=== PATIENT | male | born 1975 | race Caucasian/White ===

== ENCOUNTER 2019-07-25 17:57 | Observation (INO) ==
[2019-07-25] MEDS ORDERED: NS 1,000 ML IV PRN (18:11)
--- NOTE | 2019-07-25 18:28 | Diag Imaging Result Doc PS360 ---
EXAM: CT HEAD W/O CONTRAST 07/25/2019 HISTORY: stroke like symptoms TECHNIQUE: This exam was performed using automated exposure control, adjustment of mA or kV according to patient size, and/or use of iterative reconstruction technique. COMMENT: There is a 7 mm lacune in the posterior inferior putamen on the left. There is no evidence of mass effect, bleed, or abnormal extra-axial fluid collection. There are no previous studies available for comparison. The calvarium is intact. The visualized paranasal sinuses are clear. IMPRESSION: Chronic ischemic change. No evidence of acute disease. Electronically signed by Gabriel Kong 07/25/2019 6:25 PM
--- NOTE | 2019-07-25 18:29 | Diag Imaging Result Doc PS360 ---
EXAM: CHEST-PORTABLE 07/25/2019 HISTORY: STROKE LIKE SYMPTOMS TECHNIQUE: AP portable at 1822 COMMENT: There is no evidence of acute cardiac or pulmonary disease. There are no previous studies. IMPRESSION: No evidence of acute disease. Electronically signed by Gabriel Kong 07/25/2019 6:25 PM
[2019-07-25 19:04] LABS: BASO# 0.02 X1000 (0.0-0.2); BASO% 0.3 % (0.0-0.8); EOS# 0.09 X1000 (0.0-0.7); EOS% 1.5 % (0.0-10.0); HEMATOCRIT 39.3 % (42.0-52.0); HEMOGLOBIN 13.8 g/dL (14.0-18.0); LYMPH# 1.39 X1000 (1.2-3.4); LYMPH% 22.5 % (20.5-51.1); MCHC 35.1 g/dL (33-37); MCV 96.8 FL (81-99); MONO# 0.48 X1000 (0.11-0.59); MONO% 7.8 % (1.7-9.3); NEUT# 4.19 X1000 (1.4-6.5); NEUT% 67.9 % (42.2-75.2); PLT 213 X1000 (130-400); RBC 4.06 XMIL (4.7-6.1); RDW 13.7 % (11.5-14.5); WBC 6.17 X1000 (4.8-10.8)
[2019-07-25 19:16] LABS: INR 0.9; PROTIME 12.2 Seconds (11.0-16.0)
[2019-07-25 19:17] LABS: PTT 29.2 Seconds (22.3-41.8)
[2019-07-25 19:35] LABS: AGAP 12; ALBUMIN 4.5 g/dL (3.5-5.0); ALKALINE PHOSPHATASE 109 U/L (32-122); BUN 9 mg/dL (8-22); CHLORIDE 102 mmol/L (98-107); COSMO 283; CREATININE 0.8 mg/dL (0.7-1.2); ESTIMATED GFR > 60; GLUCOSE 150 mg/dL (70-104); GOT 41 U/L (10-34); GPT 28 U/L (10-44); POTASSIUM 3.9 mmol/L (3.5-5.1); SODIUM 141 mmol/L (136-145); TCO2 27 mmol/L (25-35); TOTAL BILIRUBIN 0.26 mg/dL (0.20-1.00); TOTAL PROTEIN 6.7 g/dL (6.3-8.3)
[2019-07-25] MEDS ORDERED: APRESOLINE IV ONE (19:53)
--- NOTE | 2019-07-25 20:40 | PROVIDER DOCUMENTATION ---
This chart was entered by Estrella Crane Scribe, acting as scribe for Luis Shoemaker MD. HPI-Neurological Disorder - General Chief Complaint: Stroke-Like Symptoms Stated Complaint: RT SIDE WEAKNESS Time Seen by Provider: 07/25/19 18:14 Source: RN/ Allergies/Adverse Reactions: Patient Allergies Allergy/AdvReac Type Severity Reaction Status Date / Time codeine AdvReac NAUSEA Verified 07/25/19 18:50 ondansetron HCl * AdvReac HEADACHE Verified 07/25/19 18:50 [From Zofran (as hydrochloride)] Home Medications: Home Medication List Medication Instructions Recorded Confirmed Last Taken Type Aspirin 325 mg PO DAILY 07/25/19 07/25/19 07/25/19 History LISINOpril [Prinivil] 20 mg PO DAILY 07/25/19 07/25/19 07/25/19 History - History of Present Illness-Neuro Nature of Presenting Problem: pt is a 44 yom c/o woke this am 0800 w/RUE heaviness. had trouble signing son in to school today. was seen by pcp today and had normal neuro exam. couldn't schedule head CT today w/pcp. pt took a nap and woke w/both RUE and RLE heaviness and decided to come to er. nonsmoker, no drug or alcohol use. HX OF HTN. Severity: reports: mild Onset/Duration: reports: this morning (0800) Timing: reports: still present Context: reports: other (RUE AND RLE HEAVINESS) Character of Altered Mental Status: reports: N/A Any recent trauma/injury?: reports: none New weakness or altered sensation location:: reports: RUE, RLE Cognitive Baseline: alert, oriented x3 Associated Symptoms: reports: denies symptoms Review of Systems - Adult - REVIEW OF SYSTEMS - ADULT Constitutional: reports: no symptoms reported. denies: fever, fatique, night sweats Eyes: reports: no symptoms reported Ears, Nose, Mouth & Throat: reports: no symptoms reported Cardiovascular: reports: no symptoms reported Respiratory: reports: no symptoms reported Gastrointestinal: reports: no symptoms reported Genitourinary: reports: no symptoms reported Musculoskeletal: reports: no symptoms reported Integumentary: reports: no symptoms reported Neurological: reports: see HPI, other (RUE AND RLE HEAVINESS). denies: headache/migraines, numbness, paresthesia Psychiatric: reports: no symptoms reported Endocrine: reports: no symptoms reported Hematologic/Lymphatic: reports: no symptoms reported Allergic/Immunologic: reports: no symptoms reported All Other Systems: Reviewed and Negative Past History - Adult - PAST MEDICAL HISTORY-ADULT Review of Records: reports: Nursing Assessment Review, Medications Reviewed, Social history reviewed & non-contributory. Major Childhood Illnesses: reports: denies history Cardiovascular: reports: HTN Respiratory: reports: denies history Gastrointestinal: reports: denies history Obstetrical/Gynecological: reports: denies history Genitourinary: reports: denies history Musculoskeletal: reports: denies history Neurological: reports: denies history Endocrine/Immune: reports: denies history Other Conditions: reports: denies history - PRIOR SURGERIES/PROCEDURES Surgical/Procedure History: reports: other (gastric sling) - IMMUNIZATION STATUS Childhood Immunizations: See Nurse Assessment Flu Vaccine: See Nurse Assessment - FAMILY HISTORY Family History: reviewed, not pertinent - SOCIAL HISTORY Smoking: non-smoker Substance Use: none/never Physical Exam- Neurological - Physical Exam-Neuro Initial Vital Signs Reviewed: Yes General Appearance: appears well, alert, no apparent distress, obese. negative: cachetic, lethargic, obtunded Eye Exam: bilateral eye: normal inspection, PERRL HENMT: normocephalic/atraumatic, moist mucous membranes Head Injury: no evidence of injury Neck: non-tender, full range of motion, supple, normal inspection Respiratory: chest non-tender, lungs clear, normal breath sounds Cardiovascular: normal peripheral pulses, regular rate, rhythm Abdominal Exam: normal bowel sounds, non tender, soft Extremity: normal range of motion, non-tender, normal inspection advertising inserter Exam: normal hearing, normal speech, PERRL Motor/Sensory: no motor deficit, no sensory deficit Neurologic: advertising inserter II-XII nml as tested, grossly normal, no motor/sensory deficits, other (NVI) Integumentary: normal color, normal turgor, warm/dry Psych/Mental Status: normal mood/affect, normal thought content, normal thought process, oriented x 3 - Glascow Coma Scale Best Eye Response: (4) open spontaneously Best Verbal Response: (5) oriented Best Motor Response: (6) obeys commands Total Glascow Score: 15 Progress - PLAN OF CARE/RESULTS Progress/Plan/Lab Results: Vital Signs - 8 hr 07/25/19 18:08 Temperature 97.8 F Pulse Rate 91 H Respiratory Rate 18 Blood Pressure 152/98 O2 Sat by Pulse Oximetry 96 Laboratory Results - last 24 hr 07/25/19 07/25/19 07/25/19 18:50 18:50 18:50 WBC 6.17 RBC 4.06 L Hgb 13.8 L Hct 39.3 L MCV 96.8 MCH 34.0 H MCHC 35.1 RDW Std Deviation 13.7 Plt Count 213 MPV 8.0 Immature Gran % (Auto) 0.0 Neut % (Auto) 67.9 Lymph % (Auto) 22.5 Chilton % (Auto) 7.8 Eos % (Auto) 1.5 Baso % (Auto) 0.3 Immature Gran # (Auto) 0.00 Neut # (Auto) 4.19 Lymph # (Auto) 1.39 Chilton # (Auto) 0.48 Eos # (Auto) 0.09 Baso # (Auto) 0.02 PT 12.2 INR 0.90 PTT (Actin FS) 29.2 Sodium 141 Potassium 3.9 Chloride 102 Carbon Dioxide 27 Anion Gap 12 BUN 9 Creatinine 0.8 Estimated GFR/1.73 m2 > 60 BUN/Creatinine Ratio 11 Glucose 150 H POC Glucose Calculated Osmolality 283 Calcium 9.0 Total Bilirubin 0.26 AST 41 H ALT 28 Alkaline Phosphatase 109 Troponin T High Sens Total Protein 6.7 Albumin 4.5 Globulin 2.2 Albumin/Globulin Ratio 2.0 07/25/19 07/25/19 18:50 19:14 WBC RBC Hgb Hct MCV MCH MCHC RDW Std Deviation Plt Count MPV Immature Gran % (Auto) Neut % (Auto) Lymph % (Auto) Chilton % (Auto) Eos % (Auto) Baso % (Auto) Immature Gran # (Auto) Neut # (Auto) Lymph # (Auto) Chilton # (Auto) Eos # (Auto) Baso # (Auto) PT INR PTT (Actin FS) Sodium Potassium Chloride Carbon Dioxide Anion Gap BUN Creatinine Estimated GFR/1.73 m2 BUN/Creatinine Ratio Glucose POC Glucose 155 H Calculated Osmolality Calcium Total Bilirubin AST ALT Alkaline Phosphatase Troponin T High Sens 7 Total Protein Albumin Globulin Albumin/Globulin Ratio Orders Category Date Time Status Cardiac Monitoring DIRECTED Care 07/25/19 18:11 Active Finger Stick Blood Sugar (ED) DIRECTED Care 07/25/19 18:11 Active Misc. NRSG Communication Order DIRECTED Care 07/25/19 18:11 Active Saline Loc NOW Care 07/25/19 18:11 Active CHEST-PORTABLE [RAD] Stat Exams 07/25/19 18:[address] HEAD W/O CONTRAST [CT] Stat Exams 07/25/19 18:11 Completed CBC WITH ELECTRONIC DIFF [HEME] Stat Lab 07/25/19 18:50 Completed COMPREHENSIVE METABOLIC PANEL [CHEM] Stat Lab 07/25/19 18:50 Completed PROTIME WITH INR [COAG] Stat Lab 07/25/19 18:50 Completed PTT [COAG] Stat Lab 07/25/19 18:50 Completed TROPONIN T HIGH SENSITIVITY Stat Lab 07/25/19 18:50 Completed URINALYSIS W/POSS RFLX CULT [URINALYSIS] Stat Lab 07/25/19 18:11 Uncollected URINE DRUG SCREEN Stat Lab 07/25/19 18:11 Uncollected 0.9% Sodium Chloride Inj [Ns] 1,000 ml Med 07/25/19 18:11 Active IV 999 mls/hr Hydralazine [Apresoline] Med 07/25/19 19:53 Discontinued 20 mg IV NOW ONE EKG [EKG] Stat Ther 07/25/19 18:11 Ordered Result Diagrams: 07/25/19 18:50 07/25/19 18:50 - EKG 1 Time of EKG reading by physician:: 19:03 EKG Read and Signed by:: Luis Shoemaker EKG Interpretation (*Must complete 3 of following elements*): Abnormal Rate: 77 Rhythm: NSR Colwell: normal QRS: normal ND Interval: normal ST Wave: non-specific ST changes (ST&T WAVE ABNORMALITY, CONSIDER ANTEROLATERAL ISCHEMIA) - XRAY 1 XRAY Study: Chest Impression: Normal, See EMR Report ( EXAM: CHEST-PORTABLE 07/25/2019 HISTORY: STROKE LIKE SYMPTOMS TECHNIQUE: AP portable at 1822 COMMENT: There is no evidence of acute cardiac or pulmonary disease. There are no previous studies. IMPRESSION: No evidence of acute disease. Electronically signed by Gabriel temple 07/25/2019 6:25 PM) Comparison with other Films: no prior study - CT/MRI 1 CT Study: Head Impression: See EMR Report (EXAM: CT HEAD W/O CONTRAST 07/25/2019 HISTORY: stroke like symptoms TECHNIQUE: This exam was performed using automated exposure control, adjustment of mA or kV according to patient size, and/or use of iterative reconstruction technique. COMMENT: There is a 7 mm lacune in the posterior inferior putamen on the left. There is no evidence of mass effect, bleed, or abnormal extra-axial fluid collection. There are no previous studies available for comparison. The calvarium is intact. The visualized paranasal sinuses are clear. IMPRESSION: Chronic ischemic change. No evidence of acute disease. Electronically signed by Gabriel Kong 07/25/2019 6:25 PM) Comparison with other Films: no prior study - CONSULTS/PCP/HOSPITALIST Notification #1 *Consult/PCP/Hospitalist*: [place] Time Discussed: 20:36 Consult Disposition: Admit (accepts admission for eval of TIA VS CVA) Departure - Departure Date of Disposition Decision: 07/25/19 Time of Disposition Decision: 20:36 DIAGNOSIS: Right sided weakness HTN (hypertension) Qualifiers: Hypertension type: essential hypertension Qualified Code(s): I10 - Essential (primary) hypertension Disposition: ADMITTED INPATIENT 09 Certified Medical Emergency: Emergent Condition: Fair Referrals and Follow-Ups: Andrea Anton MD [Primary Care Provider] - - Critical Care Note This patient required my direct & personal management of CC.: No Attestation - Physician/ INEZ Attestation Patient care was provided by Advanced Practice Provider:: No The physician spent face to face time with patient:: Yes Advanced Practice Provider documentation review:: Supervising physician onsite and consulted in the evaluation and care of this patient. The physician did have a face to face encounter with the patient. - NIH Stroke Scale NIH Type: Initial Evaluation Level of Consciousness: 0-Alert LOC Questions (ask month and age): 0-Answers Both Correctly LOC Commands (ask to open & close eyes;make a fist, let go): 0-Obeys Both Correctly Best Gaze (horizontal eye movement): 0-Normal Visual (use finger movement, counting or visual threat): 0-No Visual Loss Facial Palsy (show teeth or raise eyebrows & close eyes tght: 0-Symmetrical Movement Motor Function-left arm: 0-Normal Motor Function-right arm: 0-Normal Motor Function-left le-Normal Motor Function-right le-Normal Limb Ataxia(tzofwc-[id number], or heel to ordoñez): 0-No Ataxia Sensory(pin prick to face,arms,trunk,legs-compare side/side): 0-No Ataxia Best Language(name item/read sentence.Ex-Down to Earth): 0-No Aphasia Dysarthria(Pt read words or say words Ex.Mama,Tip-Top,Thanks: 0-Normal Articulation Extinction and Inattention: 0-Normal This chart was documented by the indicated scribe, (Estrella Crane, Scribe) and accurately reflects the services I performed and decisions made by me, Luis Shoemaker MD, as attested by the provider's signature.
[2019-07-25] MEDS: NS 1,000 ML IV SCH ×2 (21:33)
[2019-07-25] MEDS ORDERED: LIPITOR PO SCH (21:33)
[2019-07-25] MEDS ORDERED: TYLENOL PO PRN (21:33)
[2019-07-25] MEDS ORDERED: APRESOLINE IV PRN (21:33)
[2019-07-25 21:58] LABS: HEMOGLOBIN A1C 6.3 % (4.8-6.0)
[2019-07-25] MEDS ORDERED: LOVENOX SUBQ SCH (22:00)
--- NOTE | 2019-07-25 22:17 | HISTORY AND PHYSICAL ---
PRIMARY CARE PHYSICIAN: Andrea Anton MD REASON FOR ADMISSION: Right-sided weakness, right-sided heaviness today. HISTORY OF PRESENT ILLNESS: Mr. Charles Groves is a 44-year-old white male with past medical history of obstructive sleep apnea. He reports that he was awakened this morning with heaviness in his right upper extremity. He did not think anything of it. He thought he had slept on his arm. He dropped their son off at school and was tried to sign him in, and noticed he had no control of his hand movements. The patient decided to get this checked out by his primary care provider, who gave him an aspirin and was going to set up a workup for possible TIA as an outpatient; however, due to logistical reasons the patient could not do this. He then went home and slept, and when he awakened he noticed that the heaviness in his right upper extremity had increased. He started noticing some heaviness/weakness in his right lower extremity. He denies any problems swallowing, speech problems, visual problems, headaches, numbness or tingling elsewhere, loss of consciousness, palpitations or any cardiorespiratory complaints. No GI or complaints. No polyuria or polydipsia. No bleeding from any orifice. REVIEW OF SYSTEMS: Twelve-system review was done. Positive findings per HPI. The patient, on account of the findings noted in the HPI, went to the ER to get further evaluation. ALLERGIES: Codeine and Zofran. HOME MEDICATIONS: He takes nothing. He was actually given his first dose of lisinopril 20 mg by his primary care provider due to noticeable elevated blood pressure. PAST SURGICAL HISTORY: He has had tonsillectomy, right inguinal hernia repair, gastric sleeve. SOCIAL HISTORY: He does not smoke, drink or use illicit drugs. FAMILY HISTORY: Notable for epilepsy, diabetes type 2, coronary artery disease in first-degree relatives. LABORATORY DATA: Lab work is notable for blood sugar of 150. White count 6000, hemoglobin and hematocrit 13 and 39, platelets 213,000. DIAGNOSTIC DATA: EKG showed normal sinus rhythm, with nonspecific ST and T-wave changes. CT of the head showed no acute intracranial bleed or infarct. Chest film shows no evidence of acute cardiopulmonary disease. PHYSICAL EXAMINATION: VITAL SIGNS: Blood pressure is 150/98, heart rate 91, respiratory rate is 18, temperature is 97.8 degrees, he is 96% on room air. GENERAL: He is a pleasant, obese, middle-aged white male who is not in acute distress. He is alert and oriented x3 with normal mood and affect. HEENT: Head is normocephalic and atraumatic. Eyes exam: Anicteric, not pale. ENT and oropharynx exam grossly normal Without cyanosis. NEUROLOGIC: Cranial nerves 2-12 are grossly intact. The rest of his neurological exam shows a positive right pronator drift and ataxia, or shall I say lack of fine skilled movements of the digits of the right hand. Otherwise his gross power in upper and lower extremities is 5/5. No asterixis or tremors. NECK: Supple. No JVD or carotid bruit. No thyromegaly. CHEST: Clear when auscultated, with good air entry in both lung maddox. CARDIOVASCULAR: First and second heart sounds are heard. No gallops, murmurs or rubs. Rhythm is regular. ABDOMEN: Protuberant, soft. No tenderness or organomegaly. Bowel sounds are normal. RECTAL: Exam deferred at this time. EXTREMITIES: No edema, clubbing or peripheral cyanosis. Good distal pulse volumes, symmetrical, regular. SKIN: Intact. No breakdown, lesion or erythema. MUSCULOSKELETAL: Exam is grossly normal. ASSESSMENT: 1. Cerebrovascular accident, likely left lacunar infarct, purely motor in nature, with possible Patient not a candidate for thrombolysis, as it is outside the 4-1/2-hour window. His symptoms have not progressed, have remained the same since he has been in the emergency room. We will continue with aspirin for now and high-dose statins. We will allow for permissive hypertension so as not to extend probable ischemic penumbra. Screen patient for other risk- modifying conditions contributing to this patient's stroke, i.e. diabetes. In the morning if blood pressure is still elevated, consider starting the patient on modest doses of antihypertensives. Stroke workup will be initiated with carotid Doppler and echocardiogram. MRI will be much more sensitive in discerning lacunar infarcts in this case, but the patient says he is claustrophobic. I assured him he can be given Ativan. Alternatively, if the patient feels he can go through with this, our options are to probably do a CT of head and neck, which would cover for neck and intracranial stenotic lesions. If the patient does have significant intracranial stenotic lesions of the large vessels, he may benefit from addition of Plavix and aspirin combination for 90 days, as data has shown decreased incidence of recurrent stroke in this subgroup. Other supportive care, physical therapy and occupational therapy especially in this case, will be offered. Consult Dr. Rojo for further input. 2. Sleep apnea. Also, sleep apnea needs to be addressed. The patient will continue his bilevel positive airway pressure. May need modification or adjustment of his settings. 3. Hypertension. Continue on modest doses of antihypertensives, with trial of Norvasc 5 mg in the morning with or without lisinopril 10 mg. 4. Morbid obesity. 5. Hyperglycemia. Check A1c. cc: MD Andrea Welch MD MTDD
[2019-07-26 02:46] LABS: URINE SOURCE CLEAN CATCH
[2019-07-26 02:59] LABS: BILIRUBIN URINE NEGATIVE (NEGATIVE); BLOOD URINE NEGATIVE (NEGATIVE); COLOR YELLOW; GLUCOSE URINE 1000 mg/dL (NEGATIVE); KETONE URINE NEGATIVE (NEGATIVE); LEUKOCYTES URINE NEGATIVE (NEGATIVE); NITRITE URINE NEGATIVE (NEGATIVE); PROTEIN URINE 30 mg/dL (NEGATIVE); SP GRAVITY URINE 1.033; TURBIDITY URINE CLEAR (CLEAR); UROBILINOGEN URINE 2 mg/dL (NORMAL)
[2019-07-26 03:00] LABS: UR EPITHELIAL CELLS <10 /HPF (<10); URINE BACTERIA NEGATIVE /HPF; URINE RBC <10 /HPF (<10); URINE WBC <10 /HPF (<10)
[2019-07-26 03:18] LABS: UR AMPHETAMINES QUAL PRESUMPTIVE POSITIVE (NONE DETECT); UR BARBITUATES QUAL NONE DETECTED (NONE DETECT); UR BENZODIAZEPIN QUAL NONE DETECTED (NONE DETECT); UR CANNABINOIDS QUAL NONE DETECTED (NONE DETECT); UR COCAINE QUAL NONE DETECTED (NONE DETECT); UR METHADONE QUAL NONE DETECTED (NONE DETECT); UR OPIATES QUAL NONE DETECTED (NONE DETECT); UR OXYCODONE QUAL NONE DETECTED (NONE DETECT); UR PCP QUAL NONE DETECTED (NONE DETECT)
--- NOTE | 2019-07-26 07:24 | EKG Report ---
Test Performed on : 07/25/2019 7:03:33 PM Test Reason : Stroke like symptoms Blood Pressure : / mmHG Vent. Rate : 077 BPM Atrial Rate : 077 BPM P-R Int : 138 ms QRS Dur : 096 ms QT Int : 382 ms P-R-T Axes : 030 015 106 degrees QTc Int : 432 ms Normal sinus rhythm. ST & T wave abnormality, consider anterolateral ischemia Abnormal ECG No previous ECGs available Unconfirmed Result
[2019-07-26 07:53] LABS: BASO# 0.04 X1000 (0.0-0.2); BASO% 0.8 % (0.0-0.8); EOS# 0.12 X1000 (0.0-0.7); EOS% 2.4 % (0.0-10.0); HEMATOCRIT 38.5 % (42.0-52.0); HEMOGLOBIN 13.3 g/dL (14.0-18.0); LYMPH# 1.37 X1000 (1.2-3.4); LYMPH% 26.9 % (20.5-51.1); MCH 33.9 PG (27-31); MCHC 34.5 g/dL (33-37); MCV 98.2 FL (81-99); MONO# 0.42 X1000 (0.11-0.59); MONO% 8.2 % (1.7-9.3); MPV 7.9 FL (7.4-10.4); NEUT# 3.15 X1000 (1.4-6.5); NEUT% 61.7 % (42.2-75.2); PLT 188 X1000 (130-400); RBC 3.92 XMIL (4.7-6.1); RDW 13.9 % (11.5-14.5)
[2019-07-26] MEDS ORDERED: ATIVAN IV ONE (08:11)
[2019-07-26 08:26] LABS: AGAP 10; BUN 10 mg/dL (8-22); CALCIUM 8.7 mg/dL (8.8-10.2); CHLORIDE 102 mmol/L (98-107); COSMO 277; CREATININE 0.7 mg/dL (0.7-1.2); ESTIMATED GFR > 60; GLUCOSE 148 mg/dL (70-104); POTASSIUM 3.6 mmol/L (3.5-5.1); SODIUM 138 mmol/L (136-145); TCO2 26 mmol/L (25-35)
[2019-07-26] MEDS ORDERED: ASPIRIN PO SCH (09:00)
[2019-07-26] MEDS ORDERED: PRINIVIL PO SCH (09:00)
[2019-07-26] MEDS ORDERED: NORVASC PO SCH (09:00)
--- NOTE | 2019-07-26 09:06 | Diag Imaging Result Doc PS360 ---
EXAM: MRA BRAIN W/O CONTRAST HISTORY: stroke TECHNIQUE: MR angiography of [facility]. MIP images obtained. COMPARISON: None. FINDINGS: There is normal flow in the basilar artery and posterior cerebral arteries. Normal flow in the distal internal carotid arteries with filling of the anterior and middle cerebral arteries. No occlusion or focal stenosis identified. No aneurysm. IMPRESSION: Normal MR angiography of [facility]. Electronically signed by Rosalio Brown 07/26/2019 9:04 AM
--- NOTE | 2019-07-26 09:14 | Diag Imaging Result Doc PS360 ---
EXAM: MRI BRAIN W/WO CONTRAST HISTORY: stroke TECHNIQUE: MRI brain with and without intravenous contrast. Axial, sagittal, and coronal images obtained in multiple sequences. These are followed the post contrasted axial and coronal images. COMPARISON: None. FINDINGS: There is a recent left periventricular lacunar infarct just above the posterior horn of the internal capsule. This measures 10 mm. No other recent infarct. No mass or midline shift. No enhancing lesion on the post contrasted images. No hydrocephalus. No epidural or subdural fluid collection. Normal orbits. No sinus opacification. No air-fluid levels. IMPRESSION: Recent left lacunar infarct. This report was discussed with Michelle , the charge nurse on the third floor, on 07/26/2019 at 9:10 AM and was readback. Electronically signed by Rosalio Brown 07/26/2019 9:12 AM
[2019-07-26 16:46] VITALS: BP 151/98
--- NOTE | 2019-07-26 18:19 | ECHO REPORT ---
ORDER DATE: 07/26/2019 INTERPRETING PHYSICIAN: Dr. Manuel Storm QUALITY: Technically suboptimal study. Poor acoustic window. ECHOCARDIOGRAPHIC MEASUREMENTS: 1. Interventricular septum 1.8 cm. 2. Left atrium 4.0 cm. 3. Aorta 3.6 cm. 4. Left ventricular outflow tract diameter 2.8 cm. 5. Accurate measurements could not be obtained in the parasternal view. SUMMARY OF THE 2-DIMENSIONAL IMAGIN. Aortic valve leaflets were trileaflet. 2. Pulmonic valve was normal. 3. Tricuspid valve was normal. There was mild mitral regurgitation. 4. Mild tricuspid regurgitation. Peak velocity across the tricuspid valve was 2.4 m/sec. 5. Pulmonary artery systolic pressure of 33 mmHg. 6. Peak velocity across the aortic valve was less than 2 m/sec. There was no aortic stenosis or regurgitation. 7. There was diastolic dysfunction grade 1. 8. Normal left ventricular cavity size. Significant asymmetric septal hypertrophy. 9. Optison was used to assess left ventricular systolic function. Left ventricular ejection fraction estimated at 65 to 70 percent. There was no significant intraventricular gradient by Valsalva maneuver. 10. There was no pericardial effusion. 11. There was mild mitral regurgitation. 12. There was no obvious intracardiac mass or thrombus seen. cc: MD Hood Craft MD
--- NOTE | 2019-07-26 20:31 | NEUROLOGY CONSULTATION ---
DATE: 07/26/2019 HISTORY OF PRESENT ILLNESS: Mr. Groves is 44 years old and there is evidence of stroke. History from the patient is that he noted heaviness in the right arm when he woke yesterday. That seemed to be gradually worse through the day. He had trouble using his right hand for signature, trouble holding and positioning pen, without definite language problem. He developed some weakness in the right leg, but there was no stumbling or falling. He did not notice slurred speech, trouble chewing or swallowing, language problem, vision disturbance. There was never any left- sided deficit. He had a little bit of headache which resolved. Today, he thinks he is a little bit better. He has not had previous diagnosed stroke. He has never had any other neurologic event. He has risk factors for cerebrovascular ischemic problems, including recently diagnosed hypertension, possibly diabetes mellitus, possibly dyslipidemia. He does not smoke cigarettes. There is not family history of stroke or heart attack at young age. He had gastric bypass several years ago with major weight loss. He had used metformin prior to that, but believes he did not ever have diagnosis of diabetes mellitus. Workup here includes brain MRI done with and without contrast showing restricted diffusion, left subcortical periventricular white matter. Brain MRA is unremarkable. He has had echocardiogram and carotid ultrasound with reports pending. Labs showed total cholesterol 220, HDL 64, VLDL 56, LDL 121, triglycerides 281. Blood sugars have been 150s here. A1c 6.3%. There is mild anemia. He has been afebrile. Initial heart rate was 90s, recently 70s to 80s. Initial systolic blood pressures were 150s to 180s, recently 130s to 170s. Since admission, he has started daily aspirin, statin, medicines for blood pressure control, and he is tolerating this management. PHYSICAL EXAMINATION: On exam, Mr. Groves is awake, alert, attentive, appropriate, oriented, cheerful. Speech is not dysarthric. Language function is intact on careful bedside testing. Recent and remote memory good. Head and neck are unremarkable. Visual maddox are full to confrontational finger counting. Extraocular movements are full. Facial motility is good bilaterally, but the right nasolabial fold is slightly less prominent than the left. Tongue protrudes very slightly and inconsistently to the right. Gag is intact. Palate is midline. Hearing is good. Shoulder shrug is equal. Strength is normal in the left limbs. I can overcome the right deltoid 4/5, wrist extensor 4+/5, iliopsoas 4+/5. Tone is increased in the right arm. Tone is symmetric in the legs. He did rapid alternating movements much better with the left hand than with the dominant right hand. He did a little better with left [id number] than with the right. He reports equal pinprick appreciation over the hands and feet. Proprioception is good at the great toe MTP joints bilaterally. I did not test his gait. Plantar response is silent bilaterally. IMPRESSION: Acute subcortical dominant left hemispheric infarction with relatively pure motor hemiparesis. No definite language disturbance, sensory deficit, vision loss. We reviewed his risk factors. I encouraged him to be aggressive with management of those. His obstructive sleep apnea may also be a factor, and I recommended he make sure he is up-to-date with management for that. I do not have any urgent suggestion right now. He reports stable course with improvement overnight. If we do not find surprises on the carotid ultrasound and echocardiogram, I would plan for discharge with aspirin, statin, medicines for blood pressure. If he does have diabetes mellitus, we should treat blood sugar aggressively. Thanks for asking Neurology to see Mr. Groves. cc: MD VERONICA Barker III
--- NOTE | 2019-07-27 18:59 | Carotid Study ---
DATE: 07/26/2019 REFERRING PHYSICIAN: Kane Corona MD. READING PHYSICIAN: Demarco Ward MD. CHAIR FINISHER: Sg. INDICATION: Stroke. FINDINGS: There were no significant plaques or atherosclerotic changes in the carotid systems. There was antegrade vertebral flow. Percent stenosis is 0 to 39% bilaterally. INTERPRETATION: Unremarkable carotid imaging study. cc: MD Kane Pryor MD
--- NOTE | 2019-07-27 19:56 | DISCHARGE SUMMARY ---
ADMISSION DATE: 07/25/2019 DISCHARGE DATE: 07/26/2019 DISPOSITION: Home. FOLLOWUP: 1. Shira Rojo III, MD 2. Dr. Peterson. 3. [facility]. CONSULTATION DURING THIS ADMISSION: Neurology was consulted. Patient was seen by Dr. Rojo. INVASIVE PROCEDURES DONE DURING THIS ADMISSION: None. IMAGING STUDIES: Significant for: 1. A CT scan of the head showed chronic ischemic changes. No evidence of acute disease. 2. MRA of the brain showed a normal angiograph of the [place]. 3. MRI of the brain showed a recent left lacunar infarct. ADMISSION DIAGNOSES: 1. Cerebrovascular accident with left lacunar infarct purely motor in nature. 2. Sleep apnea. 3. Hypertension. 4. Morbid obesity. 5. Hyperglycemia. DIAGNOSES AT THE TIME OF DISCHARGE: 1. Acute left lacunar basal ganglia infarct leading to a mild right side hemiparesis. 2. History of obstructive sleep apnea. 3. Hypertension. 4. Morbid obesity. 5. Hyperglycemia with abnormal A1c but not diagnostic for diabetes. 6. Metabolic syndrome. DISCHARGE MEDICATIONS: 1. Aspirin 325 p.o. daily. 2. Lisinopril 10 mg p.o. daily. 3. Amlodipine 5 mg p.o. daily. 4. Atorvastatin 40 mg p.o. at bedtime. DISCHARGE INSTRUCTIONS: The patient has been advised to withhold blood pressure medication for the next 48 hours, check on the blood pressure 3 times per day, try and maintain systolic blood pressure between 140 to 160 and diastolic between 80 to 90. The patient is advised to also restart lisinopril after 48 hours; however, if the blood pressure systolic is more than 160, then to start both agents after 48 hours. Mr. Groves was found to have abnormal A1c and elevated random glucose level. We think he has metabolic syndrome. He has been advised on dietary and lifestyle modifications and repeat the A1c in about 3 months with his primary care doctor. PRESENTING COMPLAINT: Right-sided weakness. HISTORY OF PRESENTING COMPLAINT: Mr. Grovse is a 44-year-old gentleman who is known to have uncontrolled hypertension, is not on any medication started feeling some weakness on the left upper extremity yesterday. Went to see his PCP who tried to arrange outpatient CAT scan. Unfortunately, they were not able to do it right away so he went home, took his blood pressure medications and then slept, woke up and felt that the right upper extremity weakness was even worse and that the right lower extremity was also getting weaker so he came to the emergency room where he was evaluated and admitted for possible CVA. Initially a CT scan was unremarkable. He was admitted for the stroke workup. HOSPITAL COURSE: Mr. Groves was adequately fluid resuscitated. All his laboratory data were within normal range except glucose that were minimally elevated. A1c at 6.3 and both triglyceride and cholesterol were elevated; however, LDH and HDL were normal. An MRI of the brain was done, which showed an acute left lacunar infarct just above the posterior horn of the internal capsule. Today, Mr. Groves referred to be feeling a lot better. He has been evaluated by Neurology, and he is very adamant that if at all he can be discharged, he just wants to go home. I think he should be okay going home since he has been fairly neurologically stable for the last 24 hours. He has been arranged to follow up with [facility] for rehabilitation. We have also given him precise recommendations on blood pressure management in the next 48 to 72 hours, and he will follow up with his primary care doctor within the next 24 to 48 hours. All the discharge instructions were discussed with him, though his was at the bedside as well as his mom. All of them voiced understanding. TIME SPENT FOR DISCHARGE: 38 minutes. cc: MD Dr. Nicholas Bhatia Dr.
== END 2019-07-26 16:47 | disposition home or self-care (01) ==
LOC: ED 17:57 → 3N 22:46 → INTOOBSV 22:46 → SUATTDRO 22:46
PROVIDERS: ATTEND Internal Medicine